=== PATIENT | female | born 1985 | race Caucasian/White ===

== ENCOUNTER 2016-06-14 12:11 | Emergency (ER) | payer OTHER ==
[~2016-06-14 12:11] MED LIST: ATARAX PO; BACTRIM 400-801 TA1 PO; BACTRIM DS TABL1 TA1 PO; BAYER ASPIRIN325 M1 PO; BISACODYL5 M1 PO; CIPRO PO; CIPRO250 M1; CYMBALTA PO; DEPO-PROVER150 MG/ML; FELDENE10 MG; GEODAN PO; HYDROCODON-ACE1 EAC7 PO; LAMICTAL PO; LEVAQUIN750 M1 PO; LIORESAL10 MG PO; LORTAB 7.51 TAB PO; MOBIC PO; NEURONTIN800 MG PO; PHENERGAN25 M1 PO; REMERON; REMERON PO; TRAZODONE PO; TYLENOL/CODEINE1 TA1; VICODIN 5-3001 EACH PO; VOLTAREN75 MG PO; ZOFRAN ODT4 MG; ZOFRAN ODT4 MG/UDTAB PO; [UNRECOGNIZED DRUG - OTHER]
== END 2016-06-14 13:20 | disposition home or self-care (01) ==
LOC: SED 12:11
DX: H66.91 Otitis media, unspecified, right ear (principal); H60.92 Unspecified otitis externa, left ear; Z88.1 Allergy status to other antibiotic agents; Z79.899 Other long term (current) drug therapy
CPT/HCPCS: 99282

== ENCOUNTER 2016-08-21 12:41 | Emergency (ER) | payer OTHER ==
--- NOTE | ~2016-08-21 | CR63 ---
[facility]. [facility] A Service of [facility] & [facility] RADIOLOGY TEXT RESULTS PATIENT: CORA KERR LOCATION: SED : 81 UNIT #: [id number] AGE: [address]: Jesús Jacobs MD SEX: F ORDER DR: [id number] [place] [id number] MR#: [id number] Acc #: [id number] NAME: CORA KERR : 1985 SEX: F STUDY DATE/TIME: 08/21/2016 13:18 UNIT: SED ROOM: STUDY DESCRIPTION: CR Chest 2 View Attending Physician: Jesús Jacobs M.D. Ordering Physician: Jesús Jacobs M.D. Primary Care Physician: [facility] MEDICAL IMAGING REPORT This report is preliminary unless electronic signature is present. EXAM PA and lateral chest INDICATION Chest pain since yesterday. Pain in both sides of lower ribs. COMPARISON 02/06/2014. FINDINGS The lungs are well expanded and clear. The heart size is normal. The visualized osseous structures are unremarkable. IMPRESSION Negative chest. Dictated by... Hua Pendleton M.D. THIS IS AN ELECTRONICALLY VERIFIED REPORT Hua Pendleton M.D. at 08/22/2016 6:11 PM INGRIS/julissa TD: 08/21/2016 14:21 JOB #: [id number] MEDICAL IMAGING REPORT Page 1 of 1
== END 2016-08-21 14:00 | disposition home or self-care (01) ==
LOC: SED 12:41
DX: S20.212A Contusion of left front wall of thorax, initial encounter (principal); S20.211A Contusion of right front wall of thorax, initial encounter; F41.9 Anxiety disorder, unspecified; Z88.1 Allergy status to other antibiotic agents; Z79.899 Other long term (current) drug therapy; W50.1XXA Accidental kick by another person, initial encounter; Y92.9 Unspecified place or not applicable
CPT/HCPCS: 71020; 96372; 99283; J2060